=== PATIENT | male | born 1985 ===

== ENCOUNTER 2024-08-29 15:34 | Inpatient (IN) | payer OTHER ==
[~2024-08-29] VITALS: Ht 185.4 cm; Wt 84.0 kg
--- NOTE | 2024-08-29 19:17 | NUR ---
PATIENT ARRIVED ON THE [facility] FROM [facility] AT 1916.
--- NOTE | 2024-08-29 19:19 | NUR ---
PATIENT ARRIVED WITH IV IN LEFT ARM. REMOVED BY RN, CANNULA INTACT.
[2024-08-29] MEDS ORDERED: HydrOXYzine Pamoate 50 MG Cap PO PRN (19:25)
[2024-08-29] MEDS ORDERED: Haloperidol 5 MG Tab PO PRN (19:25)
[2024-08-29] MEDS ORDERED: LORazepam 2 MG/ML 1ML Injection IM PRN (19:25)
[2024-08-29] MEDS ORDERED: LORazepam 2 MG Tab PO PRN (19:25)
[2024-08-29] MEDS ORDERED: Melatonin 3 MG Tab PO PRN (19:25)
[2024-08-29] MEDS ORDERED: Ibuprofen 600 MG Tab PO PRN (19:25)
[2024-08-29] MEDS ORDERED: Haloperidol Lactate Inj. 5 MG/ML Injection IM PRN (19:30)
[2024-08-29] MEDS ORDERED: TraZODone HCl 50 MG Tab PO PRN (19:30)
[2024-08-29] MEDS ORDERED: FLU VACC TS2024-25(6MOS UP)/PF 45 MCG/0.5 ML SYRINGE IM SCH (19:30)
[2024-08-29] MEDS ORDERED: DiphenhydrAMINE HCl 50 MG Cap PO PRN (19:30)
[2024-08-29] MEDS ORDERED: DiphenhydrAMINE HCl 50 MG/ML 1ML Vial IV PRN (19:30)
[2024-08-29] MEDS ORDERED: Polyethylene Glycol 3350 17 gm PO PRN (19:30)
[2024-08-29] MEDS ORDERED: Ondansetron 4 MG SoluTab MM PRN (19:30)
[2024-08-29] MEDS ORDERED: Acetaminophen 325 MG TABLET PO PRN (19:35)
[2024-08-29] MEDS ORDERED: Calcium Carbonate 500 MG Tab Chew PO PRN (19:35)
[2024-08-29] MEDS ORDERED: OLANZapine ODT 10 MG Tab MM PRN (19:35)
[2024-08-29] MEDS ORDERED: Aluminum Hydroxide 320MG/5ML 473 ML PO PRN (19:35)
[2024-08-29] MEDS ORDERED: OLANZapine 10 MG Tab PO SCH (21:00)
[2024-08-29 21:41] VITALS: BP 140/90
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
[2024-08-30 08:02] VITALS: BP 136/83
[2024-08-30] MEDS ORDERED: Multivitamins 1 Tab PO SCH (09:00)
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
--- NOTE | 2024-08-30 17:34 | NUR ---
SHIFT SUMMARY: PT SHOWED NO ANGER THROUGH OUT THE DAY. HE NAPPED ON AND OFF, PARTICIPATED IN GRUPS. DID NOT EXPRESS ON HIS DELUSIONS OF THE NEIGHBORS HACKING ON HIS PHONE OR INTERNET. HAD A GOOD DAY. WILL CONTNUE TO MONITOR.
[2024-08-30 20:58] VITALS: BP 112/68
--- NOTE | 2024-08-31 04:42 | NUR ---
PATIENT WAS IN GROUP ROOM WATCHING TELEVISION AT THE BEGINNING OF THE SHIFT. HE JOINED THE GROUP IN THE DINING ROOM FOR SNACK AND GROUP FOLLOW UP TIME. HE THEN FINISHED THE MOVIE. HE WAS PLEASANT AND COOPERATIVE WITH CARES, INCLUDING EVENING MEDICATIONS. HE ASKED PERTINENT QUESTIONS. HE WENT TO BED AFTER THE MOVIE ENDED, AND WAS NOTED TO BE RESTING QUIETLY WITH EYES CLOSED AND RESPIRATIONS CONFIRMED THROUGHOUT THE REMAINDER OF THE SHIFT. CONTINUING TO MONITOR FOR SAFETY WITH Q15 MINUTE CHECKS.
[2024-08-31 08:03] VITALS: BP 123/84
--- NOTE | 2024-08-31 11:24 | NUR ---
PT DENIES SI. DOES STATE HE FEELS SAFE HERE BUT IS AFRAID OF NOT KNOWING ABOUT HIS FURTURE. WHEN ASKED ABOUT HIS GOALS FOR THE DAY, STATED " I DON'T KNOW, I DON'T KNOW WHERE I'M GOING". PT MET WITH KARLA MANUEL AND ABLE TO EXPRESS HIS FEELINGS AND CONCERNS. WILL CONTINUE TO MONITOR
[2024-08-31] MEDS ORDERED: TraZODone HCl 50 MG Tab PO PRN (13:00)
--- NOTE | 2024-08-31 18:15 | NUR ---
SHIFT SUMMARY: PT A/O X4. PLEASANT AND COOPERATIVE. HAS HAD A GOOD DAY. DENIES SI AT THIS TIME. HAS BEEN PARTICIPATING IN GROUPS. INTERACTING WITH PEERS. WATCHING TV WITH OTHERS. WILL CONTINUE TO MONITOR.
[2024-08-31 20:59] VITALS: BP 126/78
[2024-08-31] MEDS ORDERED: OLANZapine 10 MG Tab PO SCH (21:00)
--- NOTE | 2024-09-01 04:19 | NUR ---
PATIENT WAS IN BED READING AT THE BEGINNING OF THE SHIFT. HE WAS PLEASANT AND COOPERATIVE WITH CARES, INCLUDING EVENING MEDICATIONS. HE WENT TO THE DINING ROOM FOR SNACK AND FOLLOW UP GROUP. HE WENT BACK TO BED AND WAS NOTED TO BE RESTING QUIETLY WITH EYES CLOSED AND RESPIRATIONS CONFIRMED. HE HAD NO S/SX SUICIDAL IDEATION OR SELF HARM THIS SHIFT. CONTINUING TO MONITOR FOR SAFETY WITH Q15 MINUTE CHECKS.
[2024-09-01 07:53] VITALS: BP 115/79
[2024-09-01] MEDS ORDERED: BuPROPion HCl SR 100 MG TabCR PO SCH (15:00)
--- NOTE | 2024-09-01 17:07 | NUR ---
Pt is A&O, calm, cooperative, eye contact is appropriate. Pt is sleepy and spent much of the day in bed, but did get up for meals and groups. Pt denies SI, HI, and hallucinations. Pt's trazadone was d/c'd and olanzapine was decreased from 10mg to 5mg qhs. New order was added for bupropion 100mg bid. Pt refused 1500 dose of bupropion. Staff continues to monitor for safety and wellness.
[2024-09-01] MEDS ORDERED: OLANZapine 5 MG Tab PO SCH (21:00)
[2024-09-01 21:51] VITALS: BP 115/82
--- NOTE | 2024-09-01 23:47 | NUR ---
SHIFT SUMMARY Visible in tv room with peers, then reading in bed after snack. Pt was initially hesitant to take HS meds d/t feeling "zonked out" for most of the day (reports feeling drowsy until about dinner time). Expresses that he wants to "trust the process and take whatever you guys give me" but with the oversedation, he was considering declining HS meds tonight. Reassured him that his concerns were heard and med adjustments were made to improve his energy (trazodone was discontinued and HS Zyprexa dose decreased, starting Wellbutrin tomorrow). Pt felt more hopeful after receiving the info and was cooperative with HS Zyprexa (now 5 mg). Active participation in plan of care. Denies other concerns at this time. No SI/HI/AVH expressed this shift.
--- NOTE | 2024-09-02 16:53 | NUR ---
SHIFT SUMMARY: PT HAS BEEN COOPERATIVE THOUGHTOUT THE SHIFT WITH STAFF, ALONG WITH THE MILIEU. PT HAS PARTICIATED IN ALL MEALS, SNACKS AND PT TIME IN THE TV ROOM WATCHING A FOOTBALL GAME WITH OTHERS. PT HAS TOOK ALL MEDS TODAY EXCEPT HIS DAILY MULTI VITAMIN WHICH HE STATED HE DIDN'T WANT. HIS COMMENT THIS AM WAS THAT HE SLEPT GREAT AND FEELS BETTER THAN HE HAS. PT IS COOPERATIVE A&Ox4 AND DENIES SI/HI/AHV
--- NOTE | 2024-09-03 00:08 | NUR ---
SHIFT SUMMARY Reports feeling optimistic/hopeful with the med adjustments. Completed a puzzle, played video game, reading. Attending groups. Motivated to be active in his tx. Stated that he was alert enough in the AM to have a quality conversation with provider. Pt noted a change in his sleep, but says he'd rather have interrupted sleep than the oversedation from trazodone. Describes having the same dream of reaching toward a bottle of alcohol or meth, then waking up right before he was about to use either substance. Consistent positive interactions with staff and peers. Maintains introverted activities while still being involved in the milieu. Socializing with roommate at end of night. Gave PRN melatonin with HS [place] d/t pt's report of interrupted sleep last night. Observed to be sleeping overnight by staff during rounds without issue, but will reassess with pt tomorrow.
[2024-09-03 07:14] LABS: CHOL/HDL RATIO 2.7; Cholesterol 156 mg/dL (50-200); HDL Cholesterol 58 mg/dL (>39); LDL/HDL RATIO 1.3; Low Density Lipoprotein Chol 77 mg/dL (0-110); Triglycerides 105 mg/dL (30-140); Very Low Density Lipoprot Chol 21 mg/dL (6-28)
[2024-09-03 08:09] VITALS: BP 122/71
--- NOTE | 2024-09-03 17:51 | NUR ---
SHIFT SUMMARY PT HAS BEEN UP AND ENGAGED WITH MILIEU MOST ALL DAY, COOPERATIVE WITH STAFF AND OTHER PATIENTS. HE STS HAVING VERY STRANGE DREAMS ALTHOUGH HE CAN'T REMEMBER THEM. STS HE DOESN'T LIKE TRAZADONE, IT MAKES HIM GROGGY. HE STS HE WOULD RATHER HAVE THE STRANGE DREAMS THAN FEEL GROGGY. PT COMPLETED A VERY DIFFICULT 500 PIECE PUZZLE AGAIN TODAY. PLAYED GAMES ON THE HAND HELD GAME DEVICE. PARTICIPATED IN ALL MEALS, DENIES SI/HI/AVH, PLAN TO POSSIBLY DC TOMORROW, HIS DISCHARGE MED RECONCILIATION IS IN HIS CHART IN [facility]. DISCHARGE PLAN IS NOT COMPLETE IN CHART
[2024-09-03 21:12] VITALS: BP 120/84
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
[2024-09-04 08:12] VITALS: BP 125/79
--- NOTE | 2024-09-04 12:51 | NUR ---
Pt [employer] Information Per requested Ride to [facility] at 5pm. Pt also needed a PCP per Request. [place] Provider arriving between 4pm and 5pm today. Will be giving unit 30 minute courtesy call, they will be coming all the way from [place]. PCP Appointment was made as well and the pt has a Hospital follow up Sep 11 at 1:30pm. PCP Intake will be December 14, [address] Alejandrina Toledo.
[2024-09-04] MEDS ORDERED: BUPR150ER PO (14:00)
[2024-09-04] MEDS ORDERED: HYDPAM25 PO (14:04)
[2024-09-04] MEDS ORDERED: OLAN5 PO (14:06)
--- NOTE | 2024-09-04 16:44 | NUR ---
SHIFT SUMMARY PT A/O X4; PLEASANT AND COOPERATIVE WITH CARE. PT DENIES SI, HI, OR ANY HALLUCINATIONS. PT REPORTS THAT HE IS NERVOUS FOR DISCHARGE AND HAS TO MAKE ARRANGEMENTS TO GET HIS CAR/BELONGINGS BACK. PRESCRIPT[facility] TO [facility] [place]. HE WAS GIVEN SOME DONATION CLOTHING TO DC HOME IN. TRANSPORT ARRANGED FOR HIM TO BE DC'D BACK TO [place]. PT GIVEN RETURN TO WORK LETTER. BELONGINGS RETURNED TO PT.
== END 2024-09-04 16:25 | disposition home or self-care (01) | DRG 885 ==
LOC: BHU 15:34
PROVIDERS: ADMIT Student in an Organized Health Care Education/Training Program
DX: F33.3 Major depressive disorder, recurrent, severe with psychotic symptoms (principal); F15.251 Other stimulant dependence with stimulant-induced psychotic disorder with hallucinations; F20.0 Paranoid schizophrenia
CPT/HCPCS: 36415; 80061; 83036; A9270